=== PATIENT | female | born 1940 | race Caucasian/White ===

== ENCOUNTER 2019-04-06 07:07 | Observation (INO) ==
[2019-04-06] MEDS ORDERED: ONDANSETRON HCL/PF 2 MG/ML VIAL IV ONE (07:25)
[2019-04-06] MEDS ORDERED: PANTOPRAZOLE SODIUM 40 MG/100 ML PIGGYBACK IV ONE (07:25)
[2019-04-06] MEDS ORDERED: NORMAL SALINE 1,000 ML IV ONE ×3 (07:25→11:35)
--- NOTE | 2019-04-06 07:30 | ERNOTE ---
<Tank Reynolds - Last Filed: 04/06/19 11:30> Medical Problem HPI - General Chief Complaint: Nausea/Vomiting Time Seen by Provider: 04/06/19 07:16 - Immun/Allergies/Home Medications Immunizations: IMMUNIZATION HX Immunizations Up to Date Yes History of Influenza Vaccine No Hx Pneumococcal Vaccination No Allergies/Adverse Reactions: Allergies No Known Allergies Allergy (Verified 04/06/19 12:09) Home Medications: HOME MEDICATIONS Metoprolol Succinate 50 mg PO DAILY 04/06/19 [Last Taken Unknown] Apixaban [Eliquis] 5 mg PO BID #60 tab 04/07/19 [Last Taken Unknown] Dexlansoprazole [Dexilant] 30 mg PO BID #60 tunde.bp 04/07/19 [Last Taken Unkn own] Sucralfate [Carafate] 1 g PO ACHS #60 tab 04/07/19 [Last Taken Unknown] Medical History (Last Reviewed 04/06/19 @ 07:28 by Chad Matute MD) No pertinent past medical history Surgical History: Surgical History (Last Reviewed 04/06/19 @ 07:28 by Chad Matute MD) History of open heart surgery Hx of breast biopsy Hx of inguinal hernia repair Family History: Family History (Last Updated 04/06/19 @ 07:25 by Margot Boucher RN) Mother Hx of cardiac disorder Social History: (Last Updated 04/06/19 @ 07:24 by Margot Boucher RN) Social History: lives independently: Yes household members: significant other Tobacco: Smoking Status: Former smoker Alcohol: alcohol intake: never Progress - Date and Time Seen: Date and Time: 04/06/19 11:30 patient unchange, discussed case with dr lutz and dr castillo, to admit to observation - Results and Orders Patient's Lab Results:: I have reviewed the patient's lab results. - Vital Signs Vital Signs: Vital Signs 04/06/19 07:11 04/06/19 07:28 04/06/19 07:45 Temperature 36.1 C Pulse Rate 99 128 H 115 H Respiratory Rate 15 20 21 H Blood Pressure 93/51 102/69 96/61 O2 Sat by Pulse Oximetry 97 94 93 04/06/19 08:21 04/06/19 08:27 04/06/19 08:53 Temperature Pulse Rate 117 H 107 H 116 H Respiratory Rate 17 16 13 Blood Pressure 95/66 97/60 103/66 O2 Sat by Pulse Oximetry 92 L 93 95 04/06/19 09:21 04/06/19 10:44 04/06/19 11:05 Temperature 35.8 C L Pulse Rate 106 H 117 H 122 H Respiratory Rate 16 15 24 H Blood Pressure 114/71 104/66 97/58 O2 Sat by Pulse Oximetry 95 96 94 - CT/Ultrasound CT/Ultrasound Narrative: diverticulosis, thickening of sigmoid colon - Progress/Reassessment Chief Complaint: Nausea/Vomiting Progress:: Unchanged Plan - Plan Plan: to admit to observation Departure Clinical Impression: GI bleeding - Departure Disposition: Short Term Hospital Inpatient Condition: Stable <Chad Matute - Last Filed: 04/07/19 20:38> Medical Problem HPI - Narrative Date of Service: 04/06/19 - General Source: patient, family Exam Limitations: no limitations - Immun/Allergies/Home Medications Immunizations: IMMUNIZATION HX Immunizations Up to Date Yes History of Influenza Vaccine No Hx Pneumococcal Vaccination No - History of Present History Narrative: 78-year-old female began vomiting and diarrhea last night multiple times throughout the night according to the daughter vomiting coffee-ground material and passing dark stools patient denies any abdominal pain any history of peptic ulcer disease she is on aspirin for mitral valve replacement and A. fib which she is being covered with Toprol Date (Duration): 04/06/19 Time (Timing): 07:27 Timing: constant Severity: moderate Modifying Factors - (Improves): Present: other Modifying Factors - (Worsens): Present: other Review of Systems - Review of Systems Constitutional: Present: weakness EYE: Present: no symptoms reported ENT: Present: no symptoms reported Respiratory: Present: no symptoms reported Cardiology: Present: palpitations Gastrointestinal/Abdominal: Present: nausea, vomiting, diarrhea Genitourinary: Present: no symptoms reported Musculoskeletal: Present: no symptoms reported Skin: Present: no symptoms reported Neurological: Present: no symptoms reported Endocrine: Present: no symptoms reported Hematologic/Lymphatic: Present: no symptoms reported Psych: Present: no symptoms reported All Other Systems: All systems neg except as marked Medical History (Last Reviewed 04/06/19 @ 07:28 by Chad Matute MD) No pertinent past medical history Surgical History: Surgical History (Last Reviewed 12/14/19 @ 07:28 by Chad Matute MD) History of open heart surgery Hx of breast biopsy Hx of inguinal hernia repair Family History: Family History (Last Reviewed 04/06/19 @ 15:17 by Garcia Jacobs CRNA) Mother Hx of cardiac disorder Social History: (Last Reviewed 04/06/19 @ 12:09 by Demetria Rodgers RN) Social History: lives independently: Yes household members: significant other Tobacco: Smoking Status: Former smoker Alcohol: alcohol intake: never Physical Exam - Physical Exam General Appearance: Present: wd/wn, alert, mild distress Head Exam: Present: normal inspection Eye Exam: Normal inspection: bilateral, PERRL: bilateral, EOMI: bilateral Ears, Nose, Throat: Present: normal ENT inspection, dry mucous membranes Neck: Present: normal inspection Respiratory: Present: no respiratory distress Cardiovascular/Chest: Present: irregularly irregular Peripheral Pulses: N=norm/S=strong/W=weak/B=bound/A=absent: Carotid (R): Normal, Carotid (L): Normal Gastrointestinal/Abdominal: Present: soft, tenderness, abnormal bowel sounds, other - Mild tenderness left lower quadrant. Absent: distended, guarding, rebound Rectal Exam: Present: blood-streaked stool Back Exam: Present: normal inspection Extremity Exam: Present: normal inspection Neurological Exam: Present: alert, oriented, no motor/sensory deficits Skin Exam: Present: cool/dry, pallor Lymphatic Exam: Present: no adenopathy Progress - Vital Signs Patient's Vital Signs:: I have reviewed the patient's vital signs. Vital Signs: Vital Signs 04/06/19 07:11 Temperature 36.1 C Pulse Rate 99 Respiratory Rate 15 Blood Pressure 93/51 O2 Sat by Pulse Oximetry 97 - Transfer of Care Physician Sign Out: Chad Matute Receiving Physician: Coy Car Pending Results: Labs Expected Disposition: Transfer
[2019-04-06 07:49] LABS: Hematocrit 31.7 % (37.0-47.0); Hemoglobin 10.8 gm/dL (12.5-16.0); Mean Cell Volume 91.1 fl (78-100); Mean Corpuscular Hgb Conc 34.1 g/dl (32-36); Mean Platelet Volume 10.3 fl (8-12.5); Neutrophil # 8.6 K/mm3 (1.3-6.0); Neutrophil % 83.3 % (42-75.0); Platelet Count 203 K/mm3 (150-450); Red Blood Count 3.48 M/mm3 (4.2-5.4); Red Cell Distribution Width 13.4 % (11.5-14.0); White Blood Count 10.4 K/mm3 (4.0-10.5)
[2019-04-06 08:01] LABS: Prothrombin Time (Patient) 11.1 Seconds (9.1-10.7)
[2019-04-06 08:10] LABS: Troponin I Less than 0.017 ng/mL (0.00-0.10)
[2019-04-06 08:11] LABS: INR 1.13 INR (0.92-1.08); Partial Thrombolplastin Time 22.5 Seconds (24-32)
[2019-04-06 08:12] LABS: ALT 23 U/L (19-67); AST 14 U/L (0-48); Alkaline Phosphatase * 64 U/L (50-170); Amylase * 30 U/L (25-115); Anion Gap 12.2 mmol/L (6.8-13.8); BNP * 627 pg/mL (5-550); BUN/Creatinine Ratio 82.1 (9.0-21.6); Bilirubin, Total 0.4 mg/dL (0.0-1.1); Blood Urea Nitrogen 69 mg/dL (3-23); Ca. Corrected For Albumin 8.9 mg/dL (8.4-10.2); Calcium * 8.4 mg/dL (7.9-10.9); Carbon Dioxide 27.6 mmol/L (24-32.6); Chloride 106 mmol/L (97-106); Glucose * 181 mg/dL (70-110); Lipase 100 U/L (73-393); Potassium 3.8 mmol/L (3.4-4.6); Sodium 142 mmol/L (132-142)
[2019-04-06] MEDS ORDERED: DIATRIZOATE MEGLUMINE, SODIUM 30 ML BTL PO ONE (08:25)
[2019-04-06 10:44] LABS: Urine Appearance Clear (CLEAR); Urine Bilirubin Negative (NEGATIVE); Urine Blood Negative /ul (NEGATIVE); Urine Color Yellow; Urine Ketone Negative (NEGATIVE); Urine Nitrite Negative (NEGATIVE); Urine Protein Negative (NEGATIVE); Urine Specific Gravity 1.005 SP.GR. (1.005-1.010); Urine Urobilinogen Normal (NORMAL)
[2019-04-06 10:45] LABS: Urine Bacteria None Seen; Urine RBC None Seen /hpf (0-5); Urine WBC 0-5 /hpf (0-5)
[2019-04-06 10:59] LABS: Hematocrit 29.9 % (37.0-47.0); Hemoglobin 10.2 gm/dL (12.5-16.0)
[2019-04-06] MEDS ORDERED: NORMAL SALINE 1,000 ML IV PRN (11:45)
[2019-04-06] MEDS ORDERED: ACETAMINOPHEN 325 MG TABLET PO PRN (12:28)
[2019-04-06] MEDS ORDERED: ONDANSETRON HCL/PF 2 MG/ML VIAL IV PRN (12:28)
--- NOTE | 2019-04-06 12:45 | HP ---
Chief Complaint - Chief Complaint Date of Service: 04/06/19 Time of Service: 12:31 Chief Complaint: I had nausea and vomited coffee ground last night and this morning, and dark stools. History of Present Illness: 78-year-old female with past medical history of atrial fibrillation, mitral valve replacement, was evaluated ER due to multiple episodes of coffee- ground vomitus and melena that started yesterday evening. Patient reports that her symptoms began with "spitting up "but not vomiting of dark coffee-like substance but last night shortly before bed she developed left lower quadrant pain and vomited coffee-ground vomitus. She then reports additional episodes throughout the night, however this morning her symptoms worsened and she had multiple dark-colored stools or melena. Patient and the family became concerned enough to come to the ER. She denies this occurring before or any history GI problems. The patient reports the last time she had a colonoscopy was 3 to 4 years ago, she could not remember the exact date. Patient is currently under the care of a preprint analyst for her atrial fibrillation that started shortly after her mitral valve replacement several years ago. Since then she has not had any issues and she was taking a daily dose of aspirin and metoprolol for rate control. Also of importance, the patient admits to taking Tumeric daily which is known for increasing the risk to GI bleeding and other GI issues and kidney stones. It was explained to her that the aspirin, the Tumeric, and diverticular disease all possible explanations of his GI bleeding. Medical History (Last Reviewed 04/06/19 @ 10:44 by Margot Boucher RN) Atrial fibrillation Normal colonoscopy >5yrs Surgical History: Surgical History (Last Reviewed 04/06/19 @ 10:44 by Margot Boucher RN) History of open heart surgery mitral valve replacement Hx of breast biopsy Hx of inguinal hernia repair Family History: Family History (Last Updated 04/06/19 @ 07:25 by Margot Boucher RN) Mother Hx of cardiac disorder Social History: (Last Reviewed 04/06/19 @ 12:09 by Demetria Rodgers RN) Social History: lives independently: Yes household members: significant other Tobacco: Smoking Status: Former smoker Alcohol: alcohol intake: never Peds Patient Hx - Developmental: No Pertinent Hx Peds Patient Hx - Medical: No Pertinent Hx Peds Patient Hx - Cardiac/Respiratory: No Pertinent Hx Peds Patient Hx - Surgical: No Surgical History Patient History - Cancer: No Hx of Cancer Review Of Systems (GEN) - Review of Systems Generalized/Overall Review: Present: No Symptoms Reported EENTM: Present: No Symptoms Reported Respiratory: Present: No Symptoms Reported Cardiac: Present: No Symptoms Reported Abdominal: Present: Nausea, Vomiting, Hematemesis, Abdominal Pain, Melena Genitourinary: Present: No Symptoms Reported Musculoskeletal: Present: No Symptoms Reported Neurological: Present: No Symptoms Reported Skin: Present: No Symptoms Reported Endocrine: Present: No Symptoms Reported Immunizations: IMMUNIZATION HX Immunizations Up to Date Yes History of Influenza Vaccine No Hx Pneumococcal Vaccination No Allergies/Adverse Reactions: Allergies Allergy/AdvReac Type Severity Reaction Status Date / Time No Known Allergies Allergy Verified 04/06/19 12:09 Home Medications: HOME MEDICATIONS Aspirin 325 mg PO DAILY 04/06/19 [Last Taken Unknown] Metoprolol Succinate 50 mg PO DAILY 04/06/19 [Last Taken Unknown] Tumeric 1 tab DAILY 04/06/19 [Last Taken Unknown] Exam - Exam Vital Signs: Vital Signs - Last Taken Temp 35.8 C L 04/06/19 11:05 Pulse 112 H 04/06/19 11:36 Resp 17 04/06/19 11:36 BP 93/68 04/06/19 11:36 Pulse Ox 94 04/06/19 11:36 Constitutional: Present: Alert, Oriented x3, Cooperative, Well developed, Well nourished, No distress ENT Exam: Present: normal ENT inspection, hearing grossly normal, pharynx normal, TMs normal Eye Exam: bilateral eye: normal inspection, PERRL, EOMI Neck: Present: non-tender, full range of motion, supple, normal inspection, trachea midline Back Exam: Present: normal inspection, no CVA tenderness, no vertebral tenderness Breasts: Present: Exam deferred Respiratory: Present: chest non-tender, lungs clear, normal breath sounds, no respiratory distress, no accessory muscle use Cardiovascular/Chest: Present: normal peripheral pulses, no chest tenderness, no edema, no gallop, no JVD, no murmur, no rub, irregularly irregular Peripheral Pulses: carotid (R): 3+, carotid (L): 3+, femoral (R): 3+, femoral (L): 3+ Abdomen: Present: Normal bowel sounds, soft, nondistended, no rebound tenderness, no hepatospenomegaly, no masses, tender - Left lower quadrant tenderness to deep palpation /Rectal: Present: Exam deferred Extremity: Present: normal range of motion, non-tender, normal inspection, no pedal edema, no calf tenderness, normal capillary refill, pelvis stable Skin Exam: Present: normal color, warm/dry, no cyanosis Lymphatic: Present: no adenopathy Neurologic: Present: special population paraprofessional II-XII nml as tested, normal cerebellar test, no motor/sensory deficits, alert, normal mood/affect, oriented x 3 Appearance: Present: appropriate appearance, appropriate insight, neat, no memory impairment Eye contact: Present: cooperative, good eye contact, normal speech Thoughts: Present: normal thought pattern, no apparent hallucination Diagnostic Studies: Abnormal Lab Results 04/06/19 04/06/19 04/06/19 Range/Units 07:35 07:35 07:35 RBC 3.48 L (4.2-5.4) M/mm3 Hgb 10.8 L (12.5-16.0) gm/dL Hct 31.7 L (37.0-47.0) % Immature Gran % (Auto) 0.70 H (0.001-0.429) % Immature Gran # (Auto) 0.07 H (0.000-0.0310) K/mm3 Neutrophils % 83.3 H (42-75.0) % Lymphocytes % 10.9 L (20-51) % Neutrophils # 8.6 H (1.3-6.0) K/mm3 Lymphocytes # 1.13 L (1.5-3.5) k/mm3 PT 11.1 H (9.1-10.7) Seconds INR (Anticoag Therapy) 1.13 H (0.92-1.08) INR PTT (Taz) 22.5 L (24-32) Seconds Plasma Sodium 143 H (130-142) mmol/L BUN 69 H (3-23) mg/dL BUN/Creatinine Ratio 82.1 H (9.0-21.6) Random Glucose 181 H (70-110) mg/dL B-Natriuretic Peptide 627 H (5-550) pg/mL Total Protein 6.0 L (6.2-8.2) gm/dL Albumin 3.0 L (3.4-5.0) gm/dl Stool Occult Blood 04/06/19 04/06/19 Range/Units 07:35 10:50 RBC (4.2-5.4) M/mm3 Hgb 10.2 L (12.5-16.0) gm/dL Hct 29.9 L (37.0-47.0) % Immature Gran % (Auto) (0.001-0.429) % Immature Gran # (Auto) (0.000-0.0310) K/mm3 Neutrophils % (42-75.0) % Lymphocytes % (20-51) % Neutrophils # (1.3-6.0) K/mm3 Lymphocytes # (1.5-3.5) k/mm3 PT (9.1-10.7) Seconds INR (Anticoag Therapy) (0.92-1.08) INR PTT (Taz) (24-32) Seconds Plasma Sodium (130-142) mmol/L BUN (3-23) mg/dL BUN/Creatinine Ratio (9.0-21.6) Random Glucose (70-110) mg/dL B-Natriuretic Peptide (5-550) pg/mL Total Protein (6.2-8.2) gm/dL Albumin (3.4-5.0) gm/dl Stool Occult Blood Positive H Laboratory Results WBC 10.4 K/mm3 (4.0-10.5) 04/06/19 07:35 RBC 3.48 M/mm3 (4.2-5.4) L 04/06/19 07:35 Hgb 10.2 gm/dL (12.5-16.0) L 04/06/19 10:50 Hct 29.9 % (37.0-47.0) L 04/06/19 10:50 MCV 91.1 fl (78-100) 04/06/19 07:35 MCH 31.0 pg (27-31) 04/06/19 07:35 MCHC 34.1 g/dl (32-36) 04/06/19 07:35 RDW 13.4 % (11.5-14.0) 04/06/19 07:35 Plt Count 203 K/mm3 (150-450) 04/06/19 07:35 MPV 10.3 fl (8-12.5) 04/06/19 07:35 Immature Gran % (Auto) 0.70 % (0.001-0.429) H 04/06/19 07:35 Immature Gran # (Auto) 0.07 K/mm3 (0.000-0.0310) H 04/06/19 07:35 Neutrophils % 83.3 % (42-75.0) H 04/06/19 07:35 Lymphocytes % 10.9 % (20-51) L 04/06/19 07:35 Monocytes % 4.7 % (0.0-9) 04/06/19 07:35 Eosinophils % 0.1 % (0.0-3.0) 04/06/19 07:35 Basophils % 0.3 % (0.0-1.0) 04/06/19 07:35 Nucleated RBC % 0.0 k/mm3 (0-1) 04/06/19 07:35 Neutrophils # 8.6 K/mm3 (1.3-6.0) H 04/06/19 07:35 Lymphocytes # 1.13 k/mm3 (1.5-3.5) L 04/06/19 07:35 Monocytes # 0.5 k/mm3 (0.0-1.0) 04/06/19 07:35 Eosinophils # 0.0 k/mm3 (0.0-0.7) 04/06/19 07:35 Absolute Basophils 0.0 k/mm3 (0.0-0.1) 04/06/19 07:35 PT 11.1 Seconds (9.1-10.7) H 04/06/19 07:35 INR (Anticoag Therapy) 1.13 INR (0.92-1.08) H 04/06/19 07:35 PTT ([place]) 22.5 Seconds (24-32) L 04/06/19 07:35 Sodium 142 mmol/L (132-142) 04/06/19 07:35 Plasma Sodium 143 mmol/L (130-142) H 04/06/19 07:35 Potassium 3.8 mmol/L (3.4-4.6) 04/06/19 07:35 Chloride 106 mmol/L (97-106) 04/06/19 07:35 Carbon Dioxide 27.6 mmol/L (24-32.6) 04/06/19 07:35 Anion Gap 12.2 mmol/L (6.8-13.8) 04/06/19 07:35 BUN 69 mg/dL (3-23) H 04/06/19 07:35 Creatinine 0.84 mg/dL (0.4-1.4) 04/06/19 07:35 Est GFR (Non-Af Amer) 69 mL/min (60-130) 04/06/19 07:35 BUN/Creatinine Ratio 82.1 (9.0-21.6) H 04/06/19 07:35 Random Glucose 181 mg/dL (70-110) H 04/06/19 07:35 Calcium 8.4 mg/dL (7.9-10.9) 04/06/19 07:35 Calcium Adj for Albumin 8.9 mg/dL (8.4-10.2) 04/06/19 07:35 Total Bilirubin 0.4 mg/dL (0.0-1.1) 04/06/19 07:35 AST 14 U/L (0-48) 04/06/19 07:35 ALT 23 U/L (19-67) 04/06/19 07:35 Alkaline Phosphatase 64 U/L (50-170) 04/06/19 07:35 Troponin I Less than 0.017 ng/mL (0.00-0.10) 04/06/19 07:35 B-Natriuretic Peptide 627 pg/mL (5-550) H 04/06/19 07:35 Total Protein 6.0 gm/dL (6.2-8.2) L 04/06/19 07:35 Albumin 3.0 gm/dl (3.4-5.0) L 04/06/19 07:35 Amylase 30 U/L (25-115) 04/06/19 07:35 Lipase 100 U/L (73-393) 04/06/19 07:35 Urine Color Yellow 04/06/19 10:08 Urine Appearance Clear (CLEAR) 04/06/19 10:08 Urine pH 6.0 pH (5.0-7.0) 04/06/19 10:08 Ur Specific [place] 1.005 SP.GR. (1.005-1.010) 04/06/19 10:08 Urine Protein Negative mg/dL (NEGATIVE) 04/06/19 10:08 Urine Glucose (UA) Negative mg/dL (NEGATIVE) 04/06/19 10:08 Urine Ketones Negative mg/dL (NEGATIVE) 04/06/19 10:08 Urine Blood Negative /ul (NEGATIVE) 04/06/19 10:08 Urine Nitrate Negative (NEGATIVE) 04/06/19 10:08 Urine Bilirubin Negative mg/dl (NEGATIVE) 04/06/19 10:08 Urine Urobilinogen Normal EU/dl (NORMAL) 04/06/19 10:08 Ur Leukocyte Esterase Negative /ul (NEGATIVE) 04/06/19 10:08 Urine RBC None seen /hpf (0-5) 04/06/19 10:08 Urine WBC 0-5 /hpf (0-5) 04/06/19 10:08 Ur Epithelial Cells 0-5 /hpf (0-5) 04/06/19 10:08 Urine Bacteria None seen (NONE) 04/06/19 10:08 Urine Culture Comments No culture indicated 04/06/19 10:08 Stool Occult Blood Positive H 04/06/19 07:35 Blood Type O Positive 04/06/19 07:35 Antibody Screen Negative 04/06/19 07:35 Assessment/Plan - Narrative Narrative: Patient was evaluated medical chart was reviewed and decision to admit for observation in the MedSurg unit was made. Patient will be managed for diagnosis of GI bleeding, and posthemorrhagic anemia. Patient's hemoglobin has dropped from 10.8-10.2 since arriving, serial H&H have been ordered to be done every 6 hours for monitoring of her hemoglobin. Type and screen has been ordered in case transfusion becomes necessary. In the meantime we will keep patient n.p.o. and with IV hydration, consultation to the general surgeon career and transition teacher has been placed. Will also be treated with IV Protonix and Zofran on an as-needed basis. Aspirin has been placed on hold, and VTE prophylaxis will be covered with SCDs given the contraindication for anticoagulant due to the GI bleeding. We will continue to monitor for now. - Assessment/Plan (1) GI bleeding Problem: Acute (2) Acute post-hemorrhagic anemia Problem: Acute (3) Diverticula of colon Problem: Acute (4) Melena Problem: Acute
[2019-04-06] MEDS: PANTOPRAZOLE SODIUM 40 MG in NORMAL SALINE 100 ML IV SCH (13:12)
--- NOTE | 2019-04-06 14:32 | CONS ---
[facility] - General Date of Service: 04/06/19 Source: patient, family, RN/MD, RN notes reviewed Exam Limitations: no limitations - History of Present Illness Initial Comments: She was fine yesterday and played some cards. After she fixes supper she started to feel sick to her stomach and lay down. She gagged up some dark material 2 or 3 times. Later she vomited a large amount of coffee-ground material. She did this several times. She had no abdominal pain. Later in the evening she started to have loose black stools. She presented to the emergency room for evaluation. Her hemoglobin was found to be low. A CT scan showed diverticulosis and distention of the right renal pelvis. She had some bloody stools after the CT contrast. She was admitted She does not have much in the way of heartburn on a regular basis. She has occasional solid food dysphagia but not regularly. She denies odynophagia or abdominal discomfort. She has had a colonoscopy perhaps 5 years ago in [place]. She was told it was okay with no polyps. Her bowels generally move daily after her morning coffee. Associated Symptoms: weakness Allergies/Adverse Reactions: Allergies No Known Allergies Allergy (Verified 04/06/19 12:09) Home Medications: Home Medications Medication Instructions Recorded Last Taken Aspirin 325 mg PO DAILY 04/06/19 Unknown Metoprolol Succinate 50 mg PO DAILY 04/06/19 Unknown Tumeric 1 tab DAILY 04/06/19 Unknown Procedures Discission of secondary membrane [after cataract] (03/19/12) Insertion of intraocular lens prosthesis at time of cataract extraction, one- stage (04/04/11) Phacoemulsification and aspiration of cataract (04/04/11) Medications - Medications Current Medications: Current Medications Sodium Chloride (Sodium Chloride 0.9%) 1,000 mls @ 100 mls/hr IV .Q10H ONE Stop: 04/06/19 21:34 Last Admin: 04/06/19 11:40 Dose: 250 mls/hr Documented by: Pantoprazole Sodium 40 mg/ (Sodium Chloride) 100 mls @ 400 mls/hr IV Q12H SHIMON Stop: 05/06/19 12:16 Last Admin: 04/06/19 13:12 Dose: 400 mls/hr Documented by: Review of Systems - Review of Systems Generalized/Overall Review: Present: Fatigue. Absent: Chills, Fever EENTM: Present: No Symptoms Reported Respiratory: Absent: Cough, Shortness of Breath Cardiac: Present: Other - She is on aspirin for atrial fibrillation. Absent: Chest Pain Abdominal: Present: Other - Loose stools. Absent: Abdominal Pain Genitourinary: Present: No Symptoms Reported Musculoskeletal: Present: No Symptoms Reported Neurological: Present: No Symptoms Reported Skin: Present: No Symptoms Reported Physical Examination - Exam Vital Signs: Vital Signs - Last Taken Temp 36.8 C 04/06/19 12:15 Pulse 123 H 04/06/19 12:44 Resp 14 04/06/19 12:15 BP 101/65 04/06/19 12:15 Pulse Ox 95 04/06/19 12:15 O2 Oxygen Delivery Method Room Air Constitutional: Present: Alert, Oriented x3, Well developed, Well nourished, Acute distress, Other - Appears tired ENT Exam: Present: normal ENT inspection Eye Exam: bilateral eye: normal inspection Neck: Present: full range of motion, normal inspection Breasts: Present: Exam deferred Respiratory: Present: no respiratory distress Cardiovascular/Chest: Present: irregularly irregular Abdomen: Present: soft, nontender, nondistended, other - Very tympanitic to percussion /Rectal: Present: Exam deferred Extremity: Present: normal range of motion, no calf tenderness Skin Exam: Present: other - Somewhat sallow complected Neurologic: Present: patient observation assistant II-XII nml as tested, no motor/sensory deficits Appearance: Present: appropriate appearance, appropriate insight, neat, no memory impairment Eye contact: Present: cooperative, good eye contact, normal speech Thoughts: Present: normal thought pattern - Results and Findings: Lab/Microbiology results last 24 hrs: Abnormal/Pending Laboratory Last 24 HRS 04/06/19 04/06/19 04/06/19 10:50 07:35 07:35 RBC Hgb 10.2 L Hct 29.9 L Immature Gran % (Auto) Immature Gran # (Auto) Neutrophils % Lymphocytes % Neutrophils # Lymphocytes # PT INR (Anticoag Therapy) PTT (Taz) Plasma Sodium 143 H BUN 69 H BUN/Creatinine Ratio 82.1 H Random Glucose 181 H B-Natriuretic Peptide 627 H Total Protein 6.0 L Albumin 3.0 L Stool Occult Blood Positive H 04/06/19 04/06/19 07:35 07:35 RBC 3.48 L Hgb 10.8 L Hct 31.7 L Immature Gran % (Auto) 0.70 H Immature Gran # (Auto) 0.07 H Neutrophils % 83.3 H Lymphocytes % 10.9 L Neutrophils # 8.6 H Lymphocytes # 1.13 L PT 11.1 H INR (Anticoag Therapy) 1.13 H PTT (Taz) 22.5 L Plasma Sodium BUN BUN/Creatinine Ratio Random Glucose B-Natriuretic Peptide Total Protein Albumin Stool Occult Blood - Assessments/Findings (1) GI bleeding Diagnosis(s): Her symptoms and presentation suggest an upper GI bleed. She is on Tumeric and aspirin. An EGD could be done to ascertain whether this is gastritis or ulcer which will alter her subsequent management. She has had a relatively recent colonoscopy. Pamphlets on diverticulosis, colonoscopy, and EGD were reviewed with the patient and family. The rationale for EGD was explained. The risks and possible complications of the procedure were outlined. After interactive discussion her questions were answered to her apparent satisfaction and informed consent for EGD with biopsies was obtained. Problem: Acute
--- NOTE | 2019-04-06 15:23 | ANES ---
Anesthesia Pre Procedure Eval Vitals/Labs: Last Vital Signs Temp 36.8 C 04/06/19 12:15 Pulse 115 H 04/06/19 15:08 Resp 14 04/06/19 12:15 BP 121/67 04/06/19 15:08 Pulse Ox 95 04/06/19 12:15 HOME MEDICATIONS Aspirin 325 mg PO DAILY 04/06/19 [Last Taken Unknown] Metoprolol Succinate 50 mg PO DAILY 04/06/19 [Last Taken Unknown] Tumeric 1 tab DAILY 04/06/19 [Last Taken Unknown] Allergies/Adverse Reactions: Allergies Allergy/AdvReac Type Severity Reaction Status Date / Time No Known Allergies Allergy Verified 04/06/19 12:09 - Planned Procedure Planned Procedure: EGD Medication List Reviewed:: Yes Allergies Verified: Yes Medical History (Last Reviewed 04/06/19 @ 15:17 by Garcia Jacobs CRNA) Atrial fibrillation Normal colonoscopy >5yrs Surgical History (Last Reviewed 04/06/19 @ 15:17 by Garcia Jacobs CRNA) History of open heart surgery mitral valve replacement Hx of breast biopsy Hx of inguinal hernia repair Family History (Last Reviewed 04/06/19 @ 15:17 by Garcia Jacobs CRNA) Mother Hx of cardiac disorder - Family Anesthesia History Family History:: no untoward family reactions to anesthesia, no familial bleeding tendencies, no family history of clotting disorders, no family history of premature - Airway/Neck/Teeth Within Normal Limits:: Yes Teeth Condition: intact Denture Type: Perm crown/bridge Mallampatti Score: 1 Thyromental (T-M) distance: > 6 cm Mandibulo Hyoid distance: > 3 cm - Respiratory Respiratory Physical: lungs clear Smoking Status: Former smoker Discussed smoking cessation including day of surgery: No Sleep Apnea currently treated: No Sleep Apnea by current assessment: No Discussed Risks/Treatment of ALLA: No - Cardiovascular Tolerate Activity: Fair Heart Sounds: S1 & S2, Regular - Anesthesia Assessment and Plan ASA Class: PS, III Anesthesia Type Plan: MAC
[2019-04-06] MEDS ORDERED: ONDANSETRON HCL/PF 2 MG/ML VIAL ONE (15:24)
[2019-04-06] MEDS ORDERED: LIDOCAINE HCL 20 ML VIAL ONE (15:24)
[2019-04-06] MEDS ORDERED: PROPOFOL VIAL IV ONE (15:24)
--- NOTE | 2019-04-06 16:02 | ANES ---
Post Anesthesia Discharge - Transfer of Care Transfer of Care handoff given to nurse: Yes - Discharge from PACU Discharge from PACU when meets criteria: Yes - Discharge to ASU Discharge to ASU-no complications/pt stable: Yes
--- NOTE | 2019-04-06 16:02 | ANES ---
Post Anesthesia Assessment - Vital Signs Vitals: Last Vital Signs Temp 36.8 C 04/06/19 12:15 Pulse 109 H 04/06/19 16:00 Resp 16 04/06/19 16:00 BP 111/50 04/06/19 16:00 Pulse Ox 94 04/06/19 16:00 Airway Patency: Normal - Mental Status Level Of Consciousness: Awake - Pain Level Pain Score: 0 - N/V Assessment Nausea/Vomiting Presence: None Dehydration:: No
--- NOTE | 2019-04-06 16:22 | OR ---
Operative Report - Dictated Report Narrative: Operative Report Date of operation: 04/06/2019 Preoperative diagnosis: GI bleed Postoperative diagnosis: Prepyloric gastric ulcer. Hiatal hernia, esophagitis, gastropathy (pathology and CLOtest pending Operation: EGD with biopsies Surgeon: Dr Lara Anesthesia: INDY Jacobs CRNA Indications for procedure: The patient is an 78-year-old female who presented to the emergency room with hematemesis and then developed loose black bowel movements. She was found to be anemic. She takes tumeric on a daily basis and is on a daily regular aspirin for atrial fibrillation. She does have diverticulosis and had a colonoscopy about 5 years ago Findings: Mild esophagitis with small hiatal hernia. Gastropathy. 4 mm prepyloric gastric ulcer with exudate and adjacent areas of inflammation. Normal-appearing duodenum (pathology and CLOtest pending) No active bleeding Narrative of procedure: The patient was identified preoperatively, and prior to the administration of anesthetic a multidisciplinary timeout was observed With the patient in the recumbent position, a bite-block was placed, intravenous sedation administered, and the patient's eyes covered with a towel. The flexible fiberoptic gastroscope was advanced into the posterior pharynx which appeared normal. The supraglottic larynx appeared normal. The cords appeared normal, moved well, and opposed in the midline. The scope was advanced under direct vision into the proximal esophagus which appeared normal. The esophagus appeared freely distensible with normal mucosa. The esophageal mucosa appeared normal down to the gastroesophageal junction which was sharp with only mild inflammation. The GE junction appeared normally distensible. There was a very small hiatal hernia. The scope was advanced into the stomach which was insufflated with air. The stomach was empty. There was flores gastric erythema and a 4 mm healing prepyloric ulcer with several adjacent areas of inflammation. There was no active bleeding. A retroflexed view of the gastric fundus revealed no additional lesions. The pylorus appeared patent. The scope was advanced into the duodenal bulb which appeared normal. The scope was advanced further to the horizontal portion of the duodenum which appeared normal, specifically the villous architecture appeared well preserved and clear bile was present. The scope was slowly withdrawn through the duodenal bulb with confirmation that no active ulcer was present. The scope was withdrawn into the stomach and account development representative biopsies of gastric mucosa obtained for CLOtest and pathology. The biopsy sites were seen to be hemostatic. The insufflated air was removed, the scope withdrawn from the patient, and the procedure terminated. The patient tolerated the anesthetic and procedure well without complication and was transferred back to her room awake and in stable condition. RECOMMENDATION: Would continue proton pump inhibitor with the addition of Carafate. The patient should discontinue turmeric. Whether to continue her regular aspirin should be discussed with Dr. Taylor. The patient may be fed and given medications by mouth. Drop in hemoglobin due to hydration and the previous bleeding to be expected. Patient could potentially be started on a regular diet and discharged tomorrow if stable. Colonoscopy could be deferred at this time. Reviewed and electronically signed
[2019-04-06] MEDS: METOPROLOL SUCCINATE 50 MG TABLET.SA PO SCH (16:26)
[2019-04-06 16:55] LABS: Hematocrit 27.2 % (37.0-47.0); Hemoglobin 9.1 gm/dL (12.5-16.0)
[2019-04-06] MEDS: SUCRALFATE 1 G TABLET PO SCH ×2 (16:59→20:34)
[2019-04-06 23:11] LABS: Hematocrit 28.1 % (37.0-47.0); Hemoglobin 9.2 gm/dL (12.5-16.0)
[2019-04-07] MEDS: PANTOPRAZOLE SODIUM 40 MG in NORMAL SALINE 100 ML IV SCH (00:31)
[2019-04-07] MEDS: SUCRALFATE 1 G TABLET PO SCH ×2 (07:09→11:11)
[2019-04-07] MEDS: METOPROLOL SUCCINATE 50 MG TABLET.SA PO SCH (08:35)
[2019-04-07 10:35] VITALS: BP 121/85
--- NOTE | 2019-04-07 10:53 | DS ---
(1) GI bleeding Problem: Resolved (2) Acute post-hemorrhagic anemia Problem: Acute (3) Diverticula of colon Problem: Chronic (4) Melena Problem: Acute (5) Anemia due to gastrointestinal blood loss Problem: Acute Date of Discharge:: 04/07/19 Description of Stay: 78-year-old female admitted for upper GI bleeding, melena with resultant post hemorrhagic anemia was evaluated at bedside this morning and was found to be afebrile and in no acute distress. Patient reports complete resolution of her symptoms, there has been no recurrence of vomiting of coffee-ground substances or any other evidence of ongoing bleeding. Patient was evaluated by the general surgeon who performed an endoscopy yesterday and found a prepyloric gastric ulcer with no evidence of active bleeding. He is in agreement with me that it is likely the patient developed the ulcer due to the combination of her Aspirin plus Tumeric which she was taking daily. Patient was instructed to stop taking the turmeric, and a thorough discussion was held with her about proper anticoagulation given her risk for stroke secondary to her chronic atrial fibrillation and her prosthetic mitral valve. It was also explained to patient that with all anticoagulants there is always a risk of bleeding and given her recent development of a gastric ulcer she should be watchful for any further GI bleeding. After explaining the different options to her she agreed to be started on Eliquis at least until she is able to see her operating room tech Dr. Taylor. Patient's CHADs VASC was calculated and was found to be 3 versus a Has bled score of 2 making her eligible for anticoagulation. Also upon questioning, patient clarified that she did not have a prosthetic valve replacement but a repair of her [place] mitral valve, and a case like this and direct acting oral anticoagulant or DOAC is the preferred anticoagulation method. At the moment the patient maintains stable vitals and serial H&H demonstrate stabilization of her hemoglobin. Patient also tolerated oral intake after she was started on a liquid diet, therefore her diet will be progressed to a regular diet. We will discharge patient with a prescription for Eliquis to be taken twice a day and additional days of Protonix as well as Carafate for gastric ulcer. Patient was instructed to follow-up with her PCP and operating room tech during the next week. Procedures Performed: see notes below List Procedures: Endoscopy (EGD) Results and Findings: Lab Pending Results 04/06/19 07:35: WBC 10.4, RBC 3.48 L, Hgb 10.8 L, Hct 31.7 L, MCV 91.1, MCH 31.0, MCHC 34.1, RDW 13.4, Plt Count 203, MPV 10.3, Immature Gran % (Auto) 0.70 H, Immature Gran # (Auto) 0.07 H, Neutrophils % 83.3 H, Lymphocytes % 10.9 L, Monocytes % 4.7, Eosinophils % 0.1, Basophils % 0.3, Nucleated RBC % 0.0, Neutrophils # 8.6 H, Lymphocytes # 1.13 L, Monocytes # 0.5, Eosinophils # 0.0, Absolute Basophils 0.0 04/06/19 07:35: PT 11.1 H, INR (Anticoag Therapy) 1.13 H, PTT ([place]) 22.5 L 04/06/19 07:35: Sodium 142, Plasma Sodium 143 H, Potassium 3.8, Chloride 106, Carbon Dioxide 27.6, Anion Gap 12.2, BUN 69 H, Creatinine 0.84, Est GFR (Non-Af Amer) 69, BUN/Creatinine Ratio 82.1 H, Random Glucose 181 H, Calcium 8.4, Calcium Adj for Albumin 8.9, Total Bilirubin 0.4, AST 14, ALT 23, Alkaline Phosphatase 64, Troponin I Less than 0.017, B-Natriuretic Peptide 627 H, Total Protein 6.0 L, Albumin 3.0 L, Amylase 30, Lipase 100 04/06/19 07:35: Blood Type O Positive, Antibody Screen Negative 04/06/19 07:35: Stool Occult Blood Positive H 04/06/19 10:08: Urine Color Yellow, Urine Appearance Clear, Urine pH 6.0, Ur Specific [place] 1.005, Urine Protein Negative, Urine Glucose (UA) Negative, Urine Ketones Negative, Urine Blood Negative, Urine Nitrate Negative, Urine Bilirubin Negative, Urine Urobilinogen Normal, Ur Leukocyte Esterase Negative, Urine RBC None seen, Urine WBC 0-5, Ur Epithelial Cells 0-5, Urine Bacteria None seen, Urine Culture Comments No culture indicated 04/06/19 10:50: Hgb 10.2 L, Hct 29.9 L 04/06/19 16:07: Pathology Specimen Spec to path 04/06/19 16:50: Hgb 9.1 L, Hct 27.2 L 04/06/19 23:00: Hgb 9.2 L, Hct 28.1 L Discharge Location: Home Disposition: Home self-care Condition: Stable Face to Face Encounter completed per [facility] Guidelines: No Discharge Activity: Activity as tolerated Discharge Diet: General/regular food Referrals: Robbie Roque MD [Primary Care Provider] - Prescriptions (Any new or edited meds): Sucralfate [Carafate] 1 g PO ACHS #60 tab Transmission Status: P[place] to [place] Dexlansoprazole [Dexilant] 30 mg PO BID #60 bp Transmission Status: P[place] Apixaban [Eliquis] 5 mg PO BID #60 tab Transmission Status: Pending to [place] Complete Home Medications List: Complete Home Medication List: Metoprolol Succinate 50 mg PO DAILY 04/06/19 Apixaban [Eliquis] 5 mg PO BID #60 tab 04/07/19 Dexlansoprazole [Dexilant] 30 mg PO BID #60 bp 04/07/19 Sucralfate [Carafate] 1 g PO ACHS #60 tab 04/07/19
== END 2019-04-07 11:25 | disposition home or self-care (01) ==
LOC: MS 07:07 → ER 07:07 → MS 12:03
PROVIDERS: ADMIT Family Medicine; ATTEND Family Medicine
CPT/HCPCS: 36415; 71010; 71045; 74019; 74020; 74177; 80053; 81001; 82150; 82272; 83519; 83690; 83880; 84484; 85014; 85018; 85025; 85610; 85730; 86850; 87081; 88305; 88312; 88313; 93005; 96365; 96375; 99285; G0378; J2405; Q9963; Q9967